=== PATIENT | female | born 1995 | race Caucasian/White ===

== ENCOUNTER 2018-03-31 17:03 | Emergency (ER) | payer BC, OTHER ==
--- NOTE | 2018-03-31 17:17 | EDPHY ---
H & P Stated Complaint: hit head yesterday Time Seen by Provider: 03/31/18 17:13 HPI/ROS: HPI: This is a 23-year-old female who presents with Chief Complaint: hit head yesterday Location: forehead and nose Quality: Injury Duration: Yesterday afternoon at work Signs and Symptoms: no fever, + nausea, no vomiting, no photophobia, no noise sensitivity, no neck stiffness, no ear pain, no tinnitus, no nasal congestion, no sinus pressure, no weakness, no radiation, no aura, no LOC Timing: Acute Severity: Mild Context: Patient works at a local [employer] shop and presents with complaints of accidentally hitting her forehead and nose while at work yesterday afternoon. She reports that she was bending down to get something off of a shelf when she stood up and hit a stainless steel wall. She reports that she had no loss of consciousness, neck pain, vomiting, amnesia. She reports that her nose started to bleed and she started to feel immediate, constant, nonradiating pain in the middle of her forehead and bridge of her nose. She applied direct pressure to the bridge of nose and the bleeding stopped. She continued to finish her shift. She had some nausea and dizziness that has since resolved. Denies any nausea, vomiting, dizziness today. No prior history of concussions. Last vision exam was 1 year ago. Wears glasses. Denies any vision changes/headache. Modifying Factors: Direct pressure Comment: ROS: A comprehensive 10 system review of systems is otherwise negative aside from elements mentioned in the history of present illness. MEDICAL/SURGICAL/SOCIAL HISTORY: Medical history: Generally healthy. Does not take any regular medications. LMP 1-2 weeks ago. Surgical history: Finger surgery Social history: Employed. Denies alcohol, drug, tobacco use. Family history noncontributory. CONSTITUTIONAL: Well-developed, well-nourished young adult white female, awake and alert, no obvious distress HEENT: Nasal bridge shows superficial 4th inch abrasion/ecchymosis-no active bleeding. normocephalic. PERRL, EOMI. no globe entrapment, no raccoon eyes. no Alcocer signs. Tympanic membranes clear. No tympanic membrane rupture. Nares patent; no septal hematoma. Oropharynx clear, no exudate and moist pink mucosa. No malocclusion. no dental trauma. Airway patent. No lymphadenopathy. NECK: supple, no midline tenderness, flexion 45 degrees, extension 45 degrees, right and left lateral flexion 45 degrees. No meningismus. Cardiovascular: Normal S1/S2, regular rate, regular rhythm, without murmur rub or gallop. PULMONARY/CHEST: Symmetrical and nontender. Clear to auscultation bilaterally. Good air movement. No accessory muscle usage. ABDOMEN: Soft, nondistended, nontender. EXTREMITIES: 2/2 pulses, strength 5/5, DIP/PIP/MCP flexion/extension intact with good light touch sensation. no deformities, no clubbing, no cyanosis or edema. NEUROLOGICAL: no focal neuro deficits. GCS 15. Light touch sensation intact. Cranial nerves 2-12 grossly intact. Normal speech. SKIN: Warm and dry, no erythema. no rash. Good capillary refill. Source: Patient Exam Limitations: No limitations - Personal History LMP (Females 10-55): 8-14 Days Ago Current Tetanus/Diphtheria Vaccine: Yes Current Tetanus Diphtheria and Acellular Pertussis (TDAP): Yes - Medical/Surgical History Hx Asthma: No Hx Chronic Respiratory Disease: No Hx Diabetes: No Hx Cardiac Disease: No Hx Renal Disease: No Hx Cirrhosis: No Hx Alcoholism: No Hx HIV/AIDS: No Hx Splenectomy or Spleen Trauma: No Other PMH: finger surgery - Social History Smoking Status: Never smoked Constitutional: Initial Vital Signs Temperature (C) 36.6 C 03/31/18 17:08 Heart Rate 86 03/31/18 17:08 Respiratory Rate 16 03/31/18 17:08 Blood Pressure 141/83 H 03/31/18 17:08 O2 Sat (%) 96 03/31/18 17:08 O2 Delivery Mode Room Air Allergies/Adverse Reactions: No Known Allergies Allergy (Unverified 03/31/18 17:13) Home Medications: Medication Instructions Recorded Ondansetron Odt [Zofran Odt 4 mg 4 mg PO Q4 PRN #10 tab 03/31/18 (*)] Prozac 10 MG (*) 03/31/18 Medical Decision Making - Diagnostics Imaging Results: Imaging Impressions Nasal Bones X-Ray 03/31/18 17:17 Impression: Negative for fracture. ED Course/Re-evaluation: Vital signs reviewed and stable upon arrival. Based on nexus protocol, head CT imaging not indicated. No LOC, no neurological deficits only mild nausea and dizziness yesterday that has since resolved. Discussed this with patient who is agreeable. Nasal x-rays ordered and my read via PAC shows no fracture. Given concussion precautions, Zofran prescription per request. No signs of neurovascular compromise/tenting of skin/compartment syndrome/ extremities and joints examined above and below area of concern and are neurovascularly intact. This patient was seen under the supervision of my secondary supervising physician. I evaluated care for this patient independently. Discussed this patient with Dr. Enrique. Differential Diagnosis: Head injury including but not limited to concussion, skull fracture, intraparenchymal contusion, subarachnoid, subdural and epidural hematoma. Departure - Departure Disposition: Home, Routine, Self-Care Clinical Impression: Contusion of nose, initial encounter Mild concussion Qualifiers: Encounter type: initial encounter Loss of consciousness presence/duration: without LOC Qualified Code(s): S06.0X0A - Concussion without loss of consciousness, initial encounter Condition: Good Instructions: Concussion (ED), Nasal Contusion (ED) Additional Instructions: Take Tylenol 650 mg every 4 hours and/or Ibuprofen 600 mg every 8 hours with food as needed for pain/headache. Apply ice to the bridge of your nose for 30 minutes at a time; 2-3 times per day for the next 1-2 days. The x-rays obtained in the emergency department today demonstrate no evidence of an obvious fracture. You sustained a closed head injury, please observe concussion precautions. If you do exhibit concussion signs and symptoms, it is recommended that you follow up with Dr. Brizueal in the [facility]. Take Zofran 1 tab every 4-6 hours as needed for nausea, vomiting. Return to the ER immediately if you have progressive headaches, neurologic deficits, gait abnormality, visual disturbance, slurred speech, or any other symptom that concerns you. Work Related Injury: Date of Injury (if different from Date of Service): 03/30/18 Your work restrictions, if any, last only until the next business day. Formal evaluation for work restrictions beyond one day must be arranged through your employer's workman's compensation provider. Restrictions are noted below: Return to work on your next scheduled shift. Referrals: LALITA AGUILAR [Other] - As per Instructions Laurel Brizuela MD [Medical Doctor] - As per Instructions Prescriptions: Ondansetron Odt [Zofran Odt 4 mg (*)] 4 mg PO Q4 PRN #10 tab PRN Reason: Nausea/Vomiting, Use 1st
[2018-03-31 17:55] VITALS: BP 133/79
== END 2018-03-31 17:52 | disposition home or self-care (01) ==
DX: S06.0X0A Concussion without loss of consciousness, initial encounter (principal); S00.33XA Contusion of nose, initial encounter; W22.8XXA Striking against or struck by other objects, initial encounter; Y99.0 Civilian activity done for income or pay